=== PATIENT | female | born 1965 | race Caucasian/White ===

== ENCOUNTER 2022-11-03 08:36 | Inpatient (IN) | payer OTHER ==
[2022-11-03 09:58] LABS: CORONAVIRUS COVID-19 NAA NEGATIVE (NEGATIVE)
[2022-11-03] MEDS ORDERED: Iopamidol 755 Mg/ML 100 ML Bottle IVPUSH ONE (09:59)
[2022-11-03] MEDS ORDERED: Sodium Chloride 0.9% 45 ML IV SCH (10:00)
[2022-11-03] MEDS: Sodium Chloride 0.9% 10 ML Syringe FLUSH PRN ×2 (10:30→12:51)
[2022-11-03] MEDS ORDERED: Apixaban 5 MG Tab PO ONE (12:11)
[2022-11-03] MEDS ORDERED: Ondansetron 4 MG/2 ML SDV IV PRN (13:50)
[2022-11-03] MEDS ORDERED: Sodium Chloride 0.9% 10 ML Syringe FLUSH PRN (13:50)
[2022-11-03] MEDS ORDERED: Docusate Sodium 100 MG Cap PO PRN (13:50)
[2022-11-03] MEDS ORDERED: Ondansetron 4 MG Tab.DIS PO PRN (13:50)
[2022-11-03] MEDS ORDERED: Acetaminophen 325 MG Tab PO PRN (13:50)
[2022-11-03] MEDS: Apixaban 5 MG Tab PO SCH (21:51)
[2022-11-03] MEDS: Sodium Chloride 0.9% 10 ML Syringe FLUSH SCH (22:57)
[2022-11-04] MEDS ORDERED: FLUoxetine 10 MG Cap PO SCH (09:00)
[2022-11-04] MEDS: Apixaban 5 MG Tab PO SCH (09:14)
[2022-11-04] MEDS: Sodium Chloride 0.9% 10 ML Syringe FLUSH SCH (09:14)
== END 2022-11-04 13:24 | disposition home or self-care (01) | DRG 175 ==
LOC: JD.ED 08:36 → JD.MS 12:00
PROVIDERS: ADMIT Hospitalist; ATTEND Hospitalist
DX: I26.99 Other pulmonary embolism without acute cor pulmonale (principal); J96.01 Acute respiratory failure with hypoxia; H54.7 Unspecified visual loss; F32.A Depression, unspecified; Z20.822 Contact with and (suspected) exposure to COVID-19; Z88.2 Allergy status to sulfonamides; Z79.899 Other long term (current) drug therapy; Z79.01 Long term (current) use of anticoagulants
CPT/HCPCS: 0241U; 36415; 71045; 71045-26; 71275; 71275-26; 80053; 81241; 83880; 84484; 85025; 85300; 85303; 85306; 85379; 86140; 86147; 93005; 99285; A9270-GY; J3490; Q9967